=== PATIENT | female | born 1955 ===

== ENCOUNTER 2020-12-10 06:20 | Day surgery (SDC) | payer OTHER ==
[~2020-12-10 06:20] MED LIST: ROSUVASTATIN PO
[2020-12-10] MEDS ORDERED: AMOX1TAB5 PO (11:44)
[2020-12-10] MEDS ORDERED: NON-ASPIRIN PA500 MG PO (11:44)
== END 2020-12-10 14:55 | disposition home or self-care (01) ==
LOC: CIR.AMB 06:20
PROVIDERS: ATTEND Surgery
DX: L72.0 Epidermal cyst (principal); Z20.822 Contact with and (suspected) exposure to COVID-19